=== PATIENT | male | born 1930 | race Caucasian/White ===

== ENCOUNTER 2018-01-15 16:40 | Inpatient (IN) | payer MEDICARE ==
[~2018-01-15] VITALS: Ht 170.2 cm; Wt 82.0 kg
[2018-01-15] MEDS ORDERED: ALBU3IS INH (17:36)
[2018-01-15] MEDS ORDERED: BIOTENE MOIST44.3 ML MM (17:36)
[2018-01-15] MEDS ORDERED: DOXY100 PO (17:37)
[2018-01-15] MEDS ORDERED: BENZ100A PO (17:37)
[2018-01-15] MEDS ORDERED: PRED5 PO (17:39)
[2018-01-15] MEDS ORDERED: ACET325 PO (20:17)
[2018-01-15] MEDS ORDERED: ACETYLCYSTEINE INH (20:18)
[2018-01-15] MEDS ORDERED: ALLO100 PO (20:21)
[2018-01-15] MEDS ORDERED: ELIQUIS5 MG PO (20:22)
[2018-01-15] MEDS ORDERED: ASCO500 PO (20:23)
[2018-01-15] MEDS ORDERED: CYCL10 PO (20:26)
[2018-01-15] MEDS ORDERED: CARV6.25 PO (20:26)
[2018-01-15] MEDS ORDERED: FURO80 PO (20:28)
[2018-01-15] MEDS ORDERED: Mucus Relief400 MG PO (20:29)
[2018-01-15] MEDS ORDERED: MESALAMINE800 MG PO (20:30)
[2018-01-15] MEDS ORDERED: PETROLAT BOTHEYES (20:33)
[2018-01-15] MEDS ORDERED: MINERAL OIL BOTHEYES (20:33)
[2018-01-15] MEDS ORDERED: MOMETASONE INH (20:34)
[2018-01-15] MEDS ORDERED: MULTIVITAMIN/MINERAL PO (20:35)
[2018-01-15] MEDS ORDERED: OLODATEROL INH (20:36)
[2018-01-15] MEDS ORDERED: [UNRECOGNIZED DRUG - OTHER] INH (20:36)
[2018-01-15] MEDS ORDERED: Prilosec Otc20 MG PO (20:37)
[2018-01-15] MEDS ORDERED: PRAZ1 PO (20:38)
[2018-01-15] MEDS ORDERED: POTCHL20ER PO (20:38)
[2018-01-15] MEDS ORDERED: PYRI100 PO (20:39)
[2018-01-15] MEDS ORDERED: ROFL500T PO (20:39)
[2018-01-16 05:33] LABS: Bun/Creatinine Ratio 39.3 (12.0-20.0); Calcium, Blood 8.4 mg/dL (8.5-10.1); Creatinine, Blood 1.4 mg/dL (0.60-1.20); Potassium, Blood 4.1 mmol/L (3.5-5.5)
[2018-01-17 05:25] LABS: Hematocrit 40.7 % (37.0-53.0); Hemoglobin 13.2 g/dL (13.5-17.5); Mean Corpuscular HGB Conc 32.4 g/dL (31.5-36.5); Mean Corpuscular Volume 99 fL (80-100); Mean Platelet Volume 11.5 fL (9.1-12.4); Platelet Count 93 K/mm3 (150-400); RDW Coefficient Variation 13.9 % (11.7-14.2); RDW Standard Deviation 50.9 fL (35.1-46.3); Red Blood Cell Count 4.12 M/mm3 (4.30-5.90); White Blood Cell Count 9.99 K/mm3 (4.00-11.30)
[2018-01-17 05:48] LABS: Bun/Creatinine Ratio 31.9 (12.0-20.0); Calcium, Blood 8.4 mg/dL (8.5-10.1); Creatinine, Blood 1.38 mg/dL (0.60-1.20); Potassium, Blood 4.3 mmol/L (3.5-5.5)
[2018-01-17] MEDS ORDERED: ATOR20 PO (10:37)
[2018-01-17] MEDS ORDERED: BUDE6HFA INH (10:37)
[2018-01-17] MEDS ORDERED: DICLOFONO2.5 GM TOP (10:39)
[2018-01-17] MEDS ORDERED: Ventolin5 MG/1 ML NEB (10:41)
[2018-01-17] MEDS ORDERED: AZELASTINE137 MCG/0. INH (10:43)
[2018-01-17] MEDS ORDERED: AZIT250 PO (10:44)
[2018-01-17] MEDS ORDERED: TUDORZA PRESS400 MCG INH (10:45)
[2018-01-17] MEDS ORDERED: CELE200 PO (10:50)
[2018-01-17] MEDS ORDERED: Flonase 0.05% N16 GM INH (10:51)
[2018-01-17] MEDS ORDERED: Loratadine10 MG PO (10:52)
[2018-01-17] MEDS ORDERED: OXYC5 PO (10:53)
[2018-01-17] MEDS ORDERED: CYAN500 PO (10:54)
[2018-01-17] MEDS ORDERED: ALBU90OI INH (10:55)
[2018-01-17] MEDS ORDERED: LIDO5TO TOP (10:56)
[2018-01-17] MEDS ORDERED: Refresh Eye Dr1 EACH BOTHEYES (10:57)
[2018-01-17] MEDS ORDERED: FURO40 PO (10:59)
[2018-01-17] MEDS ORDERED: PURALUBE OPHTHAL1 GM BOTHEYES (11:01)
[2018-01-17] MEDS ORDERED: MOME220I INH (11:03)
[2018-01-17] MEDS ORDERED: STIOLTO RESPIMAT4 GM INH (11:04)
[2018-01-18 05:03] LABS: Anion Gap 7 mmol/L (6-16); Blood Urea Nitrogen 36 mg/dL (8-24); Bun/Creatinine Ratio 33.6 (12.0-20.0); CO2, Blood 31 mmol/L (21-32); Calcium, Blood 8.3 mg/dL (8.5-10.1); Chloride, Blood 103 mmol/L (98-108); Creatinine, Blood 1.07 mg/dL (0.60-1.20); Glomerular Filtration Rate >60 (60-); Glucose, Blood 127 mg/dL (70-99); Potassium, Blood 4.3 mmol/L (3.5-5.5); Sodium, Blood 141 mmol/L (136-145)
[2018-01-18] MEDS ORDERED: NEBI5 PO (11:54)
[2018-01-18] MEDS ORDERED: SPIR25 PO (11:55)
[2018-01-18] MEDS ORDERED: PRED20 PO (11:56)
[2018-01-18] MEDS ORDERED: ABAT250V (11:56)
== END 2018-01-18 12:23 | disposition home or self-care (01) | DRG 291 ==
LOC: ER 16:40 → MEDS 17:39
PROVIDERS: Internal Medicine
DX: I13.0 Hypertensive heart and chronic kidney disease with heart failure and stage 1 through stage 4 chronic kidney disease, or unspecified chronic kidney disease (principal); I50.21 Acute systolic (congestive) heart failure; J96.10 Chronic respiratory failure, unspecified whether with hypoxia or hypercapnia; I42.9 Cardiomyopathy, unspecified; I25.10 Atherosclerotic heart disease of native coronary artery without angina pectoris; N18.9 Chronic kidney disease, unspecified; G47.33 Obstructive sleep apnea (adult) (pediatric); J44.9 Chronic obstructive pulmonary disease, unspecified; I95.9 Hypotension, unspecified; Z66 Do not resuscitate; Z88.0 Allergy status to penicillin; Z95.0 Presence of cardiac pacemaker; Z87.891 Personal history of nicotine dependence; Z99.81 Dependence on supplemental oxygen; Z79.899 Other long term (current) drug therapy
CPT/HCPCS: 36415; 80048; 85027; 93306; 94640; 94660; 94762; 99285-25; J1650; J1940